=== PATIENT | female | born 1955 | race Caucasian/White ===

== ENCOUNTER 2020-04-24 10:29 | Emergency (ER) | payer MEDICARE ==
[~2020-04-24] VITALS: Ht 165.1 cm; Wt 68.0 kg
[~2020-04-24 10:29] MED LIST: ASPI81TA31 PO; ATOR10TA PO; CALC-7 PO; ROPI4TAB3 PO; ZOLP5TAB2 PO
--- NOTE | 2020-04-24 10:50 | NUR ---
lap[employer] officers at bedside.
[2020-04-24] MEDS ORDERED: IBUPROFEN 600 MG TABLET PO ONE (11:30)
[2020-04-24] MEDS ORDERED: IBUPROFEN 600 MG TABLET ONE (11:32)
--- NOTE | 2020-04-24 12:08 | NUR ---
Patient discharged to home in stable condition. Written and verbal after care instructions given. Patient verbalizes understanding of instructions. Stressed follow up or return to ER for worsening s/s.
[2020-04-24 12:09] VITALS: BP 101/59
== END 2020-04-24 12:10 | disposition home or self-care (01) ==
LOC: ER 10:29
DX: M25.562 Pain in left knee (principal); M25.561 Pain in right knee; M25.511 Pain in right shoulder; M79.631 Pain in right forearm; M79.641 Pain in right hand; V43.52XA Car driver injured in collision with other type car in traffic accident, initial encounter; Y92.410 Unspecified street and highway as the place of occurrence of the external cause; K21.9 Gastro-esophageal reflux disease without esophagitis; F17.200 Nicotine dependence, unspecified, uncomplicated; Z82.49 Family history of ischemic heart disease and other diseases of the circulatory system; F32.9 Major depressive disorder, single episode, unspecified; Z79.82 Long term (current) use of aspirin; Z79.899 Other long term (current) drug therapy
CPT/HCPCS: 73030; 73090; 73130; A4663

== ENCOUNTER 2021-01-17 15:02 | Emergency (ER) | payer BC, MEDICAID, MEDICARE ==
[~2021-01-17] VITALS: Ht 160 cm; Wt 66.2 kg
--- NOTE | 2021-01-17 15:23 | NUR ---
PT IS IN ROOM #1B. DR QUISPE EVALUATED THE PT.
[2021-01-17] MEDS ORDERED: ONDANSETRON ODT 4 MG TAB.RAPDIS SL ONE (15:30)
[2021-01-17] MEDS ORDERED: OXYCODONE/APAP 5-325 MG TABLET PO ONE (15:30)
[2021-01-17] MEDS ORDERED: OXYCODONE/APAP 5-325 MG TABLET ONE (15:45)
[2021-01-17] MEDS ORDERED: ONDANSETRON ODT 4 MG TAB.RAPDIS ONE (15:45)
[2021-01-17] MEDS ORDERED: IBUPROFEN 600 MG TABLET PO ONE (16:45)
[2021-01-17] MEDS ORDERED: HYDR-4209 PO (17:00)
[2021-01-17] MEDS ORDERED: IBUP-1955 PO (17:00)
[2021-01-17] MEDS ORDERED: IBUPROFEN 600 MG TABLET ONE (17:47)
--- NOTE | 2021-01-17 17:47 | NUR ---
Patient discharged to home in stable condition. No signs of acute distress noted. Written and verbal after care instructions given. Patient verbalizes understanding of instructions. Stressed follow up or return to ER for worsening s/s.
[2021-01-17 17:53] VITALS: BP 123/65
== END 2021-01-17 17:50 | disposition home or self-care (01) ==
LOC: ER 15:04
DX: S09.90XA Unspecified injury of head, initial encounter (principal); S16.1XXA Strain of muscle, fascia and tendon at neck level, initial encounter; S83.92XA Sprain of unspecified site of left knee, initial encounter; S83.91XA Sprain of unspecified site of right knee, initial encounter; S33.5XXA Sprain of ligaments of lumbar spine, initial encounter; S33.8XXA Sprain of other parts of lumbar spine and pelvis, initial encounter; S63.502A Unspecified sprain of left wrist, initial encounter; S63.501A Unspecified sprain of right wrist, initial encounter; W01.0XXA Fall on same level from slipping, tripping and stumbling without subsequent striking against object, initial encounter; Y92.512 Supermarket, store or market as the place of occurrence of the external cause; Z82.49 Family history of ischemic heart disease and other diseases of the circulatory system
CPT/HCPCS: 70450; 71045; 72125; 72131; 72170; 72192; 72220; 73110; 73560; A4663; Q0162